=== PATIENT | male | born 1990 | race Caucasian/White ===

== ENCOUNTER 2016-06-08 17:48 | Emergency (ER) | payer SELFPAY ==
[~2016-06-08] VITALS: Ht 172.7 cm; Wt 68.2 kg
[~2016-06-08 17:48] MED LIST: NO HOME MEDICATIONS
[2016-06-08 17:56] VITALS: TEMP 98.2
[2016-06-08] MEDS ORDERED: AMOXICILLIN 50500 MG PO (19:13)
[2016-06-08 19:34] VITALS: BP 130/80; PULSE 78
== END 2016-06-08 19:43 | disposition home or self-care (01) ==
LOC: COL.ER 17:48
DX: K08.89 Other specified disorders of teeth and supporting structures (principal); F17.210 Nicotine dependence, cigarettes, uncomplicated

== ENCOUNTER 2017-01-10 09:38 | Emergency (ER) | payer SELFPAY ==
[~2017-01-10] VITALS: Ht 172.7 cm; Wt 72.7 kg
[~2017-01-10 09:38] MED LIST changes: +AMOXICILLIN 50500 MG PO
[2017-01-10 09:40] VITALS: BP 128/75; PULSE 73; TEMP 98.1
[2017-01-10] MEDS ORDERED: NORCO 325 MG-51 TAB PO (10:08)
[2017-01-10] MEDS ORDERED: PEN-VEE K500 MG PO (10:08)
== END 2017-01-10 10:28 | disposition home or self-care (01) ==
LOC: COL.ER 09:38
DX: R68.84 Jaw pain (principal); K02.9 Dental caries, unspecified; K04.7 Periapical abscess without sinus; F17.210 Nicotine dependence, cigarettes, uncomplicated